=== PATIENT | female | born 1945 | race Two or more races ===

== ENCOUNTER 2025-02-28 23:56 | Inpatient (IN) | payer MEDICARE, OTHER ==
[~2025-02-28] VITALS: Ht 149.9 cm; Wt 82.0 kg
--- NOTE | 2025-03-01 00:20 | ED.PDOC ---
History of Present Illness HPI Comments HPI:79-year-old female brought in by ambulance from home. Family called 911 because patient had low blood sugar in the 30s. She received D10 in route in his blood sugar has improved. Patient is back to her baseline. There was no loss of consciousness or fall or injury or trauma. Patient had similar episodes in the past. Per EMS, initial GCS of 5 with a blood sugar of 38 on scene Initial Vitals BP: 124/70 HR: 94 RR: 16 O2: 98% Temp: 98.2 F Blood sugar on scene: 38 Past Medical History: Hypertension, diabetes Past Surgical History: None Social History: Denies ETOH, smoking, and drug use. Medications: Metformin Allergies: None Suhail HPI: Poor Historian. 79-year-old female brought in by ambulance from home. Family called 911 because patient had low blood sugar in the 30s. She received D10 in route in his blood sugar has improved. Patient is back to her baseline. There was no loss of consciousness or fall or injury or trauma. Patient had similar episodes in the past. REVIEW OF SYSTEMS: CONSTITUTIONAL: Denies acute: fever, diaphoresis, chills, generalized weakness. HEAD: Denies acute: headache, photophobia Eyes: Denies acute: Double vision, vision loss, eye pain, eye discharge. EARS: Denies acute: tinnitus, hearing loss, ear discharge, ear pain, THROAT: Denies acute: sore throat, swelling, difficulty swallowing , pain with swallowing, change in voice. NECK: Denies acute: neck pain, neck swelling, stiff neck. HEART: Denies acute : chest pain, palpitations, LUNGS: Denies acute: SOB, wheezing, cough, hemoptysis ABDOMEN: Denies acute: abdominal pain, Nausea, Vomiting, diarrhea, melena , hematemesis, hematochezia SKIN: Denies acute: rash, redness, lesions, itchiness. EXTREMITIES: Denies acute: calf pain, numbness, tingling, weakness, denies pain in extremity. Denies acute: Low back pain. Neuro: Denies acute: focal neurological deficit, motor or sensory focal neurological deficit, tremors, seizure like activity, confusion, dizziness, change in mental status, loss of bowel or bladder function, cauda equina like symptoms. : Denies acute: dysuria, hematuria, flank pain, increase in urinary frequency. PSYCH: Denies acute: hallucination, suicidal ideation, homicidal ideation. FEMALE: Denies acute: abnormal vaginal bleeding, foul odor, unusual discharge. PHYSICAL EXAM: General: ---no-----acute distress, awake and alert. Head: normocephalic, atraumatic. Neck: supple, trachea is midline, no swelling. Throat: Normal phonation. Eyes:, no erythema, no purulent discharge, no proptosis, no icterus. Heart: regular rate, regular rhythm, no significant murmur appreciated. Lungs: no apparent respiratory distress, Able to speak in full sentences. No wheezing, no rhonchi, no crackles. No stridors Clear to auscultation bilaterally. Abdomen: non tender to palpation, non distended, soft, no guarding, no rebound, + bowel sounds. Neuro: Awake, Alert, oriented to name, self, situation, follows commands GCS=15. Speech is normal. Skin: no petechia, no purpura, no cyanosis, non-pale, not jaundice. Lower extremities: --no - Pitting edema no deformity, no focal swelling, no calf TTP. Makes eye contact. moves all four extremities. Face: no apparent facial droop. ED COURSE: DISCLAIMER: This medical document was created using an electronic medical record system with voice recognition software and computerized dictation system. Although this document has been carefully reviewed, there might still be some phonetic and typographical errors. Occasional wrong-word or "sound-alike" substitutions may have occurred due to the inherent limitations of voice recognition software. These areas are purely typographical due to imperfections of the software programs and do not reflect any compromise in the patient's medical care. Please read the chart carefully and recognize, using context, where these substitutions have occurred. 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 Was a procedure done?: No Differential Dx Considerations may include: Anemia, electrolyte imbalance, hypoglycemia, UTI Includes but not limited to thyroid disease, encephalopathy, electrolyte abnormality, sepsis, infection, intracranial pathology, drug adverse effects, arrhythmia, kidney insufficiency, ACS, CVA, malignancy, anemia X-Ray, Labs, Meds, VS Vital Signs Date Time Temp Pulse Resp B/P (MAP) Pulse Ox O2 Delivery O2 Flow Rate FiO2 03/01/25 05:30 86 14 107/51 (69) 98 03/01/25 03:52 Room Air* 0 21 03/01/25 03:33 98.4 86 15 126/57 (80) 97 98.4 02/28/25 23:56 98.2 94 16 124/92 98 98.2 Lab Test 03/01/25 05:49 03/01/25 05:35 03/01/25 03:57 03/01/25 03:31 Range/Units POC Glucose 35 *L 35 *L 106 70-106 mg/dl Troponin I High Sensitivity 49 *H </=34 ng/L Test 03/01/25 02:24 03/01/25 01:26 03/01/25 00:34 Range/Units Urine Color Colorless Yellow Urine Clarity Clear Clear Urine pH 7.0 5.0-9.0 Urine Specific [place] 1.006 1.001-1.035 Urine Protein 1+ H Negative Urine Ketones Negative Negative Urine Blood 1+ H Negative /uL Urine Nitrite Negative Negative Urine Bilirubin Negative Negative Urine Urobilinogen Normal Negative mg/dL Urine Leukocyte Esterase Negative Negative /uL Urine RBC <1 0 - 4 /hpf Urine Microscopic WBC 6 H 0-5 /HPF Urine Squamous Epithelial Cells Few <5 /hpf Urine Bacteria Few H None Seen /hpf Urine Glucose 1+ H Normal mg/dL Troponin I High Sensitivity 47 *H 32 </=34 ng/L White Blood Count 13.5 H 4.4-10.8 10^3/uL Red Blood Count 3.65 L 4.0-5.20 10^6/uL Hemoglobin 8.9 L 12.2-16.2 g/dL Hematocrit 26.0 L 36.0-46.0 % Mean Corpuscular Volume 71.4 L 80.0-100.0 fL Mean Corpuscular Hemoglobin 24.5 L 28.0-32.0 pg Mean Corpuscular Hemoglobin Concent 34.3 32.0-36.0 g/dL Red Cell Distribution Width 14.3 11.8-14.3 % Platelet Count 493 H 140-450 10^3/uL Mean Platelet Volume 6.2 L 6.9-10.8 fL Neutrophils (%) (Auto) 87.3 H 37.0-80.0 % Lymphocytes (%) (Auto) 4.8 L 10.0-50.0 % Monocytes (%) (Auto) 7.5 0.0-12.0 % Eosinophils (%) (Auto) 0.2 0.0-7.0 % Basophils (%) (Auto) 0.2 0.0-2.0 % Neutrophils # (Auto) 11.8 H 1.6-8.6 10 ^3/uL Lymphocytes # (Auto) 0.7 0.4-5.4 10 ^3/uL Monocytes # (Auto) 1.0 0-1.3 10 ^3/uL Eosinophils # (Auto) 0 0-0.8 10 ^3/uL Basophils # (Auto) 0 0-0.2 10 ^3/uL Nucleated Red Blood Cells 0.0 % Sodium Level 119 *L 136-145 mmol/L Potassium Level 4.3 3.5-5.1 mmol/L Chloride Level 89 L 98-107 mmol/L Carbon Dioxide Level 21 20-31 mmol/L Anion Gap 9 5-15 Blood Urea Nitrogen 27 H 9-23 mg/dL Creatinine 2.65 H 0.550-1.02 mg/dL Glomerular Filtration Rate Calc 18 >90 mL/min BUN/Creatinine Ratio 10.2 10.0-20.0 Serum Glucose 84 74-106 mg/dL Lactic Acid Level 1.7 0.4-2.0 mmol/L Calcium Level 8.4 L 8.7-10.4 mg/dL Total Bilirubin 0.3 0.2-1.0 mg/dL Aspartate Amino Transferase (AST) 26 13-40 U/L Alanine Aminotransferase (ALT) 14 7-40 U/L Alkaline Phosphatase 94 46-116 U/L Total Protein 7.5 5.7-8.2 g/dL Albumin 4.0 3.2-4.8 g/dL Current Medications Medications (Trade) Dose Ordered Sig/Libby Route Start Time Stop Time Status Last Admin Sodium Chloride 1,000 ml @ 1,000 mls/hr Q1H ONCE IV 03/01/25 01:45 03/01/25 02:44 DC 03/01/25 03:36 Dextrose 50 ml ONCE ONCE IV 03/01/25 02:45 03/01/25 02:46 DC 03/01/25 02:45 [place] [id number] Ph: [phone] DIAGNOSTIC IMAGING Diagnostic Imaging Report : [id number] Signed PATIENT: STEVE MANNING ACCT: [id number] UNIT: [id number] : 1945 LOC: ER ROOM / BED: / AGE / SEX: 79 / F ADM STATUS: REG ER SERVICE 2 ORDERING PHYSICIAN: LAISHA HODGE DO PROCEDURE(s): CXRP - CHEST PORTABLE REASON: weak ORDER NUMBER(s): [id number], ACCESSION NUMBER(s): [id number] CHEST RADIOGRAPH Indication: weak Technique: Single frontal view of the chest was obtained COMPARISON: None FINDINGS: Lines and Tubes: None Lungs: Clear Pleura: No effusion. No pneumothorax. Cardiomediastinal contours: Unremarkable Bones: Unremarkable IMPRESSION: 1. No acute disease. ATED BY: HOSEA ANDERSON MD DICTATED DATE/TIME: 03/01/25318 SIGNED BY: HOSEA ANDERSON MD SIGNED DATE/TIME: 03/01/25318 CC: Time of 1ST Reevaluation: 00:13 Reevaluation 1ST: Unchanged Patient Education/Counseling: Diagnosis, Treatment Family Education/Counseling: No Family Present Comments MDM: patient presented with the above HPI.--hypoglycemic episode----workup was initiated. patient was found with the above mentioned diagnosis. the following medications were ordered: please refer to order lists of meds and tests obtained by myself Dr. Hodge. Patient ED course and VS have been stabilized. Patient has been reassessed in the ED and remained in a stable condition. Pertinent incidental findings were discussed with the patient and/or family. Patient/family voices understanding and is agreeable with plan. Patient has been observed in the ED adequate length of time to insure improvement/stability. Escalation of care considered: Consideration of escalation to observation or admission Patient was found with a UTI, antibiotics initiated. Patient was found with hyponatremia, fluids was initiated. Patient had another episode of hypoglycemia here in the ED, dextrose D50 was given. Patient was ADMITTED to the medicine team for further evaluation and treatment of their presentation. All the reports of any imaging studies that were ordered by myself were reviewed by myself. SEPSIS Sepsis Screen Physician Orders Termite Control Servicer (02/28/25 ) Electrocardigram (02/28/25 23:58) Chest Portable (03/01/25 01:43) Ceftriaxone 1gm/50ml (Rocephin) (03/01/25 05:45) Vital Signs Date Time Temp Pulse Resp B/P (MAP) Pulse Ox O2 Delivery O2 Flow Rate FiO2 03/01/25 05:30 86 14 107/51 (69) 98 03/01/25 03:52 Room Air* 0 21 03/01/25 03:33 98.4 86 15 126/57 (80) 97 98.4 02/28/25 23:56 98.2 94 16 124/92 98 98.2 Laboratory Tests Test 03/01/25 00:34 Lactic Acid Level 1.7 mmol/L (0.4-2.0) White Blood Count 13.5 10^3/uL (4.4-10.8) H Medications Medications Dose Ordered Sig/Libby Route Start Time Stop Time Status Last Admin Dose Admin Dextrose 50 ml ONCE ONCE IV 03/01/25 02:45 03/01/25 02:46 DC 03/01/25 02:45 Sodium Chloride 1,000 ml @ 1,000 mls/hr Q1H ONCE IV 03/01/25 01:45 03/01/25 02:44 DC 03/01/25 03:36 Departure 1 Departure Time of Disposition: 00:50 Impression: Primary Impression: Hypoglycemic episode in patient with diabetes mellitus Additional Impressions: Hyponatremia Acute renal insufficiency Anemia UTI (urinary tract infection) Disposition: ADMITTED INPATIENT Admit to: Tele Condition: Guarded Discharged With: Self Critical Care Note Critical Care Time?: Yes (55 min-critical care time only) Critical care comment: Hypoglycemia Stability Stability form required: No I personally scribed for LAISHA HODGE DO ([facility]) on 03/01/25 at 00:20. Electronically submitted by Junior Wahl ([facility]). I personally scribed for LAISHA HODGE DO ([facility]) on 03/01/25 at 00:42. Electronically submitted by Junior Wahl ([facility]). I personally scribed for LAISHA HODGE DO ([facility]) on 03/01/25 at 01:45. Electronically submitted by Junior Wahl ([facility]). I personally scribed for LAISHA HODGE DO ([facility]) on 03/01/25 at 05:21. Electronically submitted by Junior Wahl ([facility]). LAISHA HODGE DO Mar 01, 2025 00:20
[2025-03-01 00:43] LABS: Nucleated Red Blood Cells % 0.0 %
[2025-03-01 00:45] LABS: Hematocrit 26.0 % (36.0-46.0); Hemoglobin 8.9 g/dL (12.2-16.2); Mean Corpuscular Hemoglobin 24.5 pg (28.0-32.0); Mean Corpuscular Volume 71.4 fL (80.0-100.0)
[2025-03-01 01:03] LABS: Alanine Aminotransferase 14 U/L (7-40); Albumin 4.0 g/dL (3.2-4.8); Alkaline Phosphatase 94 U/L (46-116); Anion Gap 9 (5-15); BUN/Creatinine Ratio 10.2 (10.0-20.0); Carbon Dioxide 21 mmol/L (20-31); Glucose 84 mg/dL (74-106); Potassium 4.3 mmol/L (3.5-5.1); Total Protein 7.5 g/dL (5.7-8.2)
[2025-03-01 01:21] LABS: Blood Urea Nitrogen 27 mg/dL (9-23); Chloride 89 mmol/L (98-107)
[2025-03-01 01:22] LABS: Bilirubin, Total 0.3 mg/dL (0.2-1.0); Calcium 8.4 mg/dL (8.7-10.4)
[2025-03-01 01:23] LABS: Sodium 119 mmol/L (136-145)
[2025-03-01] MEDS: DEXTROSE 50% SYRINGE 50 ML IV ONE (02:44)
[2025-03-01] MEDS: DEXTROSE (50%) 50ML SYRG IV ONE (02:45)
[2025-03-01 03:11] LABS: Urine Protein, UAD 1+ (Negative)
--- NOTE | 2025-03-01 03:22 | DVH ---
CHEST RADIOGRAPH Indication: weak Technique: Single frontal view of the chest was obtained COMPARISON: None FINDINGS: Lines and Tubes: None Lungs: Clear Pleura: No effusion. No pneumothorax. Cardiomediastinal contours: Unremarkable Bones: Unremarkable IMPRESSION: 1. No acute disease.
[2025-03-01] MEDS: SODIUM CHLORIDE 0.9% 1,000 ML IV ONE (03:36)
--- NOTE | 2025-03-01 06:50 | DVHHP2 ---
History of Present Illness Reason for Visit: Low blood glucose History of Present Illness 79-year-old female past medical history hypertension diabetes denies any surgical history chief complaint patient was brought in by ambulance with his her family they called 911 due her blood glucose being low it was found to be 39 she received an amp of dextrose IV which improved her sugars she came up to 212 by the labs patient unable to give much information about herself on my exam she is from [facility] as she is [place]og[place] speaking. Information provided from the nurse. When evaluating patient's labs and imaging from ED ceftriaxone dexamethasone was given normal saline white count was 13.5 hemoglobin was 8.9 26.0 glucose was 35 and currently 212 troponin was elevated x2 UA showed bacteria chest x-ray was unremarkable. With these findings we will admit patient for further workup and care Past Medical History See HPI above Past Surgical History See HPI above Family History Reviewed, non-contributory to the management of this case. Past Social History The patient lives at home, denies smoking, alcohol or illicit drugs abuse. Review of Systems Constitutional: No: Fever, Chills, Sweats, Weakness, Malaise, Other Eyes: No: Pain, Vision change, Conjunctivae inflammation, Eyelid inflammation, Other, Redness ENT: No: Ear pain, Ear discharge, Nose pain, Nose discharge, Nose congestion, Mouth pain, Mouth swelling, Throat pain, Throat swelling, Other Respiratory: No: Cough, Dry, Shortness of breath, SOB with excertion, Wheezing, Hemoptysis, Pleuritic Pain, Sputum, Wheezing, Other Cardiovascular: No: Chest Pain, Palpitations, Orthopnea, Paroxysmal Noc. Dyspnea, Edema, Lt Headedness, Other Gastrointestinal: No: Nausea, Vomiting, Abdominal Pain, Diarrhea, Constipation, Melena, Hematochezia, Other Genitourinary: No Dysuria, No Frequency, No Incontinence, No Hematuria, No Retention, No Other Musculoskeletal: No: other, neck pain, shoulder pain, arm pain, back pain, hand pain, leg pain, foot pain Skin: No: Rash, Lesions, Jaundice, Bruising, Other Neurological: No: Weakness, Numbness, Incoordination, Change in speech, Confusion, Seizures, Other Allergies: Coded Allergies: NO KNOWN ALLERGIES (Unverified , 03/01/25) Exam Vital Signs Vital Signs Date Time Temp Pulse Resp B/P (MAP) Pulse Ox O2 Delivery O2 Flow Rate FiO2 9/12/25 05:30 86 14 107/51 (69) 98 03/01/25 03:52 Room Air* 0 21 03/01/25 03:33 98.4 98.4 General Appearance: Alert, Oriented X3, Cooperative, No acute distress HEENT: Atraumatic, PERRLA, EOMI, Mucous membr. moist/pink Respiratory: Clear to auscultation, Normal air movement Cardiovascular: Regular rate, Normal S1, Normal S2, No murmurs Abdominal: Normal bowel sounds, Soft, No tenderness, No hepatospenomegaly, No masses Extremities: No clubbing, No cyanosis, No edema, Normal pulses, No tenderness /swelling Skin: No rashes, No breakdown, No significant lesion Neuro: Other (Neuro nonfocal) Psych/Mental Status: Mental status NL, Mood NL Labs/Xrays Chest x-ray unremarkable I reviewed labs, imaging CT scan abdomen pelvis, EKG and all diagnostic studies on this patient from ED records and the medical chart Labs Test 03/01/25 06:12 03/01/25 03:57 03/01/25 02:24 03/01/25 00:34 Range/Units POC Glucose 212 H 70-106 mg/dl Troponin I High Sensitivity 49 *H </=34 ng/L Urine Color Colorless Yellow Urine Clarity Clear Clear Urine pH 7.0 5.0-9.0 Urine Specific [place] 1.006 1.001-1.035 Urine Protein 1+ H Negative Urine Ketones Negative Negative Urine Blood 1+ H Negative /uL Urine Nitrite Negative Negative Urine Bilirubin Negative Negative Urine Urobilinogen Normal Negative mg/dL Urine Leukocyte Esterase Negative Negative /uL Urine RBC <1 0 - 4 /hpf Urine Microscopic WBC 6 H 0-5 /HPF Urine Squamous Epithelial Cells Few <5 /hpf Urine Bacteria Few H None Seen /hpf Urine Glucose 1+ H Normal mg/dL White Blood Count 13.5 H 4.4-10.8 10^3/uL Red Blood Count 3.65 L 4.0-5.20 10^6/uL Hemoglobin 8.9 L 12.2-16.2 g/dL Hematocrit 26.0 L 36.0-46.0 % Mean Corpuscular Volume 71.4 L 80.0-100.0 fL Mean Corpuscular Hemoglobin 24.5 L 28.0-32.0 pg Mean Corpuscular Hemoglobin Concent 34.3 32.0-36.0 g/dL Red Cell Distribution Width 14.3 11.8-14.3 % Platelet Count 493 H 140-450 10^3/uL Mean Platelet Volume 6.2 L 6.9-10.8 fL Neutrophils (%) (Auto) 87.3 H 37.0-80.0 % Lymphocytes (%) (Auto) 4.8 L 10.0-50.0 % Monocytes (%) (Auto) 7.5 0.0-12.0 % Eosinophils (%) (Auto) 0.2 0.0-7.0 % Basophils (%) (Auto) 0.2 0.0-2.0 % Neutrophils # (Auto) 11.8 H 1.6-8.6 10 ^3/uL Lymphocytes # (Auto) 0.7 0.4-5.4 10 ^3/uL Monocytes # (Auto) 1.0 0-1.3 10 ^3/uL Eosinophils # (Auto) 0 0-0.8 10 ^3/uL Basophils # (Auto) 0 0-0.2 10 ^3/uL Nucleated Red Blood Cells 0.0 % Sodium Level 119 *L 136-145 mmol/L Potassium Level 4.3 3.5-5.1 mmol/L Chloride Level 89 L 98-107 mmol/L Carbon Dioxide Level 21 20-31 mmol/L Anion Gap 9 5-15 Blood Urea Nitrogen 27 H 9-23 mg/dL Creatinine 2.65 H 0.550-1.02 mg/dL Glomerular Filtration Rate Calc 18 >90 mL/min BUN/Creatinine Ratio 10.2 10.0-20.0 Serum Glucose 84 74-106 mg/dL Lactic Acid Level 1.7 0.4-2.0 mmol/L Calcium Level 8.4 L 8.7-10.4 mg/dL Total Bilirubin 0.3 0.2-1.0 mg/dL Aspartate Amino Transferase (AST) 26 13-40 U/L Alanine Aminotransferase (ALT) 14 7-40 U/L Alkaline Phosphatase 94 46-116 U/L Total Protein 7.5 5.7-8.2 g/dL Albumin 4.0 3.2-4.8 g/dL SEPSIS Sepsis Screen Date sepsis recognized/suspect: Mar 01, 2025 Time Sepsis recognized/suspect: 353 Recent Procedure: No On Antibiotic Therapy: No Respiratory Rate >20: No Heart Rate >90: No Temp<36 C (96.8 F) or >38.3 C: No SBP <90 or MAP <65 mmHG: No New Acute Mental Status Change: No Is the patient on CPAP, BIPAP,: No Physician Orders Precision Assembler (02/28/25 ) Electrocardigram (02/28/25 23:58) Chest Portable (03/01/25 01:43) Vital Signs Date Time Temp Pulse Resp B/P (MAP) Pulse Ox O2 Delivery O2 Flow Rate FiO2 03/01/25 05:30 86 14 107/51 (69) 98 03/01/25 03:52 Room Air* 0 21 03/01/25 03:33 98.4 86 15 126/57 (80) 97 98.4 02/28/25 23:56 98.2 94 16 124/92 98 98.2 Laboratory Tests Test 03/01/25 00:34 Lactic Acid Level 1.7 mmol/L (0.4-2.0) White Blood Count 13.5 10^3/uL (4.4-10.8) H Medications Medications Dose Ordered Sig/Libby Route Start Time Stop Time Status Last Admin Dose Admin Ceftriaxone Sodium 50 ml @ 100 mls/hr ONCE ONCE IV 03/01/25 05:45 03/01/25 06:14 DC 03/01/25 06:07 100 MLS/HR Dextrose 50 ml ONCE ONCE IV 03/01/25 02:45 03/01/25 02:46 DC 03/01/25 02:45 50 ML Sodium Chloride 1,000 ml @ 1,000 mls/hr Q1H ONCE IV 03/01/25 01:45 03/01/25 02:44 DC 03/01/25 03:36 1,000 MLS/HR Assessment/Plan Assessment/Plan acute metabolic encephalopathy from hypoglycemia glucose found to be 35 ordered accucheck q4h for now ordered diet hold home dose of insulin or oral medication acute hypoglycemia trend glucose to keep >120 diet accucheck more freqent rounding team to ordered hemoglin a1c consider d10w if continued hypoglycemia acute leukocytosis likely from cystitis ordered ceftriaxone for now ordered urine culture fu results cxr negative acute cystitis ordered ceftriaxone ordered urine culture fu results acute on chronic anemia monitor transfuse if hh <8.0 rounding team to order iron panel ordered occult stool in blood acute elevation in trop likely demand ischemia ekg no stemi trend trops ordered echo fu results chronic problems HTN fen/ppx diet hl scd lovenox plan admit to tele Plan discussed with: Other (nursing ) Date of Service: Mar 01, 2025 Billing Provider: HENNA HAYWARD DNP Common Visit Codes: [id number] INP/OBS CARE (HIGH) HENNA HAYWARD DNP Mar 01, 2025 06:50
[2025-03-01] MEDS ORDERED: ONDANSETRON HCL 4 MG/2 ML VIAL IV PRN (07:00)
[2025-03-01] MEDS ORDERED: DOCUSATE SOD 100 MG CAP PO PRN (07:00)
[2025-03-01] MEDS ORDERED: DEXTROSE (50%) 50ML SYRG IV PRN (07:00)
[2025-03-01] MEDS ORDERED: MORPHINE SULFATE INJ 2 MG/ml SYRG IV PRN (07:00)
[2025-03-01 07:20] VITALS: PULSE 86; RESP 15; O2SAT 94
[2025-03-01] MEDS: ACCU-CHEK COMFORT CURVE STRIP VI SCH ×2 (08:13→21:30)
[2025-03-01] MEDS ORDERED: NITROGLYCERIN 0.4 MG SL TAB SL PRN (09:45)
[2025-03-01] MEDS: ENOXAPARIN SOD 30 MG/0.3 ML SYRINGE SC SCH (10:28)
[2025-03-01 11:16] VITALS: BP_SYST 121; BP_SYST 123; BP_DIAS 62; BP_DIAS 80; PULSE 96; PULSE 97; RESP 18; TEMP 97; TEMP 97.8; O2SAT 96; O2SAT 97
[2025-03-01] MEDS ORDERED: DEXTROSE 10% 250 ML IV SCH (14:45)
[2025-03-01] MEDS: DEXTROSE 10% 1,000 ML IV SCH (15:26)
[2025-03-01 16:45] VITALS: BP 138/69; PULSE 88; RESP 18; TEMP 97.8; O2SAT 96
--- NOTE | 2025-03-01 17:26 | DVHINCON2 ---
Date Seen: Mar 01, 2025 Referring Physician ROYCE العراقي Reason for Consultation Elevated troponin History of Present Illness This is a [place] speaking 79-year-old female patient who presents to the emergency room with chief complaint of generalized weakness. The patient is [place] speaking and a certified home health aide was used to communicate (ID [id number]). The patient reports feeling generalized weakness for which she checked her blood sugar at home and noticed that her blood sugar readings were in the 30s. The patient was brought to the emergency room for further evaluation. Cardiology has been consulted at this time for elevated troponin level. No twelve lead electrocardiogram was found in the patient's hard chart or on cardio server systems administrator. A twelve lead electrocardiogram was ordered and obtained at time of assessment by bedside RN and reveals sinus tachycardia with artifact in septal and lateral leads (V1, V6). Initial troponin level of 32ng/L with slight up trend and peak level at 81ng/L. Significant past medical history includes hypertension, dy slipidemia, and type 2 diabetes mellitus. Of note, the patient is a very poor historian. Past Medical History Past medical history reviewed. No other significant than mentioned above. Past Surgical History Denies any previous surgery Family History Family history reviewed. Social History Denies the use of tobacco, alcohol or illicit drugs. Allergies: Coded Allergies: NO KNOWN ALLERGIES (Unverified , 03/01/25) Home Meds Home medications reviewed. Current Medications Current Medications Medications (Trade) Dose Ordered Sig/Libby Route PRN Reason Start Time Stop Time Status Last Admin Ceftriaxone Sodium 50 ml @ 100 mls/hr DAILY@09 IV 03/02/25 09:00 Diagnostic Test (Pha) (Accu-Chek Comfort Curve T) 1 strip IQ4HR 03/01/25 08:00 03/01/25 16:28 Dextrose 50 ml UD PRN IV Blood Sugar LESS THAN 60 03/01/25 07:00 Ondansetron HCl (Zofran) 4 mg Q4HP PRN IV NAUSEA / VOMITING 03/01/25 07:00 Docusate Sodium (Colace Capsule) 100 mg BIDPRN PRN PO FOR CONSTIPATION 03/01/25 07:00 Enoxaparin Sodium (Lovenox) 30 mg DAILY SC 03/01/25 10:00 03/01/25 10:28 Morphine Sulfate 2 mg Q4HPRN PRN IV SEVERE PAIN (7-10 PAIN SCALE) 03/01/25 07:00 Nitroglycerin (Ntrostat Sublingual) 0.4 mg Q5MINP PRN SL FOR CHEST PAIN 03/01/25 09:45 Dextrose 250 ml @ 50 mls/hr DAILY IV 03/01/25 14:45 UNV Dextrose 1,000 ml @ 50 mls/hr Q20H IV 03/01/25 15:15 03/01/25 15:26 Review of Systems Constitutional: Generalized weakness Ears, Nose, & Throat: No symptom reported Eyes: No symptom reported Neurological: No symptoms reported Pulmonary/Respiratory: No symptoms reported Cardiovascular: No symptom reported Gastrointestinal: No symptom reported Genitourinary: No symptom reported Musculoskeletal: No symptom reported Skin: No symptom reported Psychiatric: No symptom reported Endocrine: No symptom reported Hematologic/Lymphatic: No symptom reported Vital Signs Vital Signs Date Time Temp Pulse Resp B/P (MAP) Pulse Ox O2 Delivery O2 Flow Rate FiO2 03/01/25 16:45 97.8 88 18 138/69 (92) 96 97.8 03/01/25 11:16 Room Air* 0 21 Physical Exam General Appearance: Cooperative. Thin Pulmonary/Respiratory: Clear, bilateral breaths sounds. Cardiovascular/Chest: Regular rate and rhythm. Peripheral Pulses: 2+ Radial (R). 2+ Radial (L). 2+ Pedal (R). 2+ Pedal (L) Abdominal Exam: Normal bowel sounds. Ankle Exam: Negative ankle edema Lower extremities: Negative lower extremity edema Neuro/Mental Status: A/OX4, coherent. Thoughts/Psych: Normal thought pattern. Appropriate mood and affect. Good judgment and insight. Appearance: No acute distress. Skin Exam: Normal inspection. Normal color. Warm and dry. Labs/Diagnostic Data Labs Test 03/01/25 16:26 03/01/25 07:08 03/01/25 02:24 03/01/25 00:34 Range/Units POC Glucose 113 H 70-106 mg/dl Troponin I High Sensitivity 81 *H </=34 ng/L Urine Color Colorless Yellow Urine Clarity Clear Clear Urine pH 7.0 5.0-9.0 Urine Specific [place] 1.006 1.001-1.035 Urine Protein 1+ H Negative Urine Ketones Negative Negative Urine Blood 1+ H Negative /uL Urine Nitrite Negative Negative Urine Bilirubin Negative Negative Urine Urobilinogen Normal Negative mg/dL Urine Leukocyte Esterase Negative Negative /uL Urine RBC <1 0 - 4 /hpf Urine Microscopic WBC 6 H 0-5 /HPF Urine Squamous Epithelial Cells Few <5 /hpf Urine Bacteria Few H None Seen /hpf Urine Glucose 1+ H Normal mg/dL White Blood Count 13.5 H 4.4-10.8 10^3/uL Red Blood Count 3.65 L 4.0-5.20 10^6/uL Hemoglobin 8.9 L 12.2-16.2 g/dL Hematocrit 26.0 L 36.0-46.0 % Mean Corpuscular Volume 71.4 L 80.0-100.0 fL Mean Corpuscular Hemoglobin 24.5 L 28.0-32.0 pg Mean Corpuscular Hemoglobin Concent 34.3 32.0-36.0 g/dL Red Cell Distribution Width 14.3 11.8-14.3 % Platelet Count 493 H 140-450 10^3/uL Mean Platelet Volume 6.2 L 6.9-10.8 fL Neutrophils (%) (Auto) 87.3 H 37.0-80.0 % Lymphocytes (%) (Auto) 4.8 L 10.0-50.0 % Monocytes (%) (Auto) 7.5 0.0-12.0 % Eosinophils (%) (Auto) 0.2 0.0-7.0 % Basophils (%) (Auto) 0.2 0.0-2.0 % Neutrophils # (Auto) 11.8 H 1.6-8.6 10 ^3/uL Lymphocytes # (Auto) 0.7 0.4-5.4 10 ^3/uL Monocytes # (Auto) 1.0 0-1.3 10 ^3/uL Eosinophils # (Auto) 0 0-0.8 10 ^3/uL Basophils # (Auto) 0 0-0.2 10 ^3/uL Nucleated Red Blood Cells 0.0 % Sodium Level 119 *L 136-145 mmol/L Potassium Level 4.3 3.5-5.1 mmol/L Chloride Level 89 L 98-107 mmol/L Carbon Dioxide Level 21 20-31 mmol/L Anion Gap 9 5-15 Blood Urea Nitrogen 27 H 9-23 mg/dL Creatinine 2.65 H 0.550-1.02 mg/dL Glomerular Filtration Rate Calc 18 >90 mL/min BUN/Creatinine Ratio 10.2 10.0-20.0 Serum Glucose 84 74-106 mg/dL Lactic Acid Level 1.7 0.4-2.0 mmol/L Calcium Level 8.4 L 8.7-10.4 mg/dL Total Bilirubin 0.3 0.2-1.0 mg/dL Aspartate Amino Transferase (AST) 26 13-40 U/L Alanine Aminotransferase (ALT) 14 7-40 U/L Alkaline Phosphatase 94 46-116 U/L Total Protein 7.5 5.7-8.2 g/dL Albumin 4.0 3.2-4.8 g/dL Assessment NSTEMI, likely type 2 in the setting of electrolyte derangement Rule out structural heart disease Severe hyponatremia Hypoglycemia Anemia Acute kidney injury Plan/Recommendation We will continue with the following plan/recommendations (Dr. Kowalski): We will proceed with obtaining a transthoracic echocardiogram to evaluate cardiac function. Elevated troponin level minimal and likely type 2 in the setting of an electrolyte derangement. The patient noted to have severe hyponatremia as well as hypoglycemia and elevated creatinine levels. The patient denies any cardiac symptoms. Continue with close cardiac surveillance. In the setting of an unremarkable transthoracic echocardiogram, there is no further inpatient cardiac workup indicated at this time. Rest of care per primary care team. Thank you for allowing us to care for this patient. Please call with any questions or concerns. Critical care time spent: 44 minutes This medical document was created using an electronic medical record system with voice recognition software and computerized dictation system. Although this document has been carefully reviewed, there might still be some phonetic and typographical errors. Occasional wrong-word or ``sound-alike substitutions may have occurred due to the inherent limitations of voice recognition software. These areas are purely typographical due to imperfections of the software programs and do not reflect any compromise in the patient's medical care. Please read the chart carefully and recognize, using context, where these substitutions have occurred. Plan discussed with: Patient NYHA Physical activity limitations: NA Date of Service: Mar 01, 2025 Billing Provider: NEISHA GILES Cardiology Common Codes: [id number] INP/OBS CARE (High) Cardiology Consultation Codes: [id number] CONSULT <45MIN NEISHA GILES Mar 01, 2025 17:26
[2025-03-01 20:00] VITALS: PULSE 104; PULSE 94
[2025-03-01 21:00] VITALS: BP 134/77; PULSE 102; RESP 18; TEMP 98.5; O2SAT 99
[2025-03-02] VITALS (8 sets, daily range): BP systolic 127–157; BP diastolic 59–74; PULSE 81–108; RESP 17–18; TEMP 97.2–98.4; O2SAT 94–99
[2025-03-02 05:41] LABS: Hemoglobin 9.5 g/dL (12.2-16.2)
[2025-03-02 05:46] LABS: Hematocrit 28.1 % (36.0-46.0); Mean Corpuscular Hemoglobin 24.0 pg (28.0-32.0); Mean Corpuscular Volume 71.1 fL (80.0-100.0); Nucleated Red Blood Cells % 0.1 %
[2025-03-02 05:54] LABS: Alanine Aminotransferase 15 U/L (7-40); Albumin 4.1 g/dL (3.2-4.8); Alkaline Phosphatase 93 U/L (46-116); Anion Gap 10 (5-15); BUN/Creatinine Ratio 8.5 (10.0-20.0); Blood Urea Nitrogen 20 mg/dL (9-23); Calcium 9.0 mg/dL (8.7-10.4); Carbon Dioxide 22 mmol/L (20-31); Glucose 102 mg/dL (74-106); Magnesium 1.8 mg/dL (1.6-2.6); Potassium 4.4 mmol/L (3.5-5.1); Total Protein 7.6 g/dL (5.7-8.2); Triglycerides 84 mg/dL (< 150)
[2025-03-02 05:55] LABS: Chloride 94 mmol/L (98-107); Cholesterol 76 mg/dL (< 200); HDL Cholesterol 41 mg/dL (40-59); Sodium 126 mmol/L (136-145)
[2025-03-02 05:57] LABS: Bilirubin, Total 0.3 mg/dL (0.2-1.0)
--- NOTE | 2025-03-02 12:14 | DVHPN2 ---
Reviewed: Care Plan, H&P, Labs, Medications, Previous Orders, Radiology Changes from previous H/P or p: No Changes Eyes: No Pain, No Vision change, No Conjunctivae inflammation, No Eyelid inflammation, No Other, No Redness ENT: No Ear pain, No Ear discharge, No Nose pain, No Nose discharge, No Nose congestion, No Mouth pain, No Mouth swelling, No Throat pain, No Throat swelling, No Other Cardiovascular: No Chest Pain, No Palpitations, No Orthopnea, No Paroxysmal Noc. Dyspnea, No Edema, No Lt Headedness, No Other Respiratory: No Cough, No Dry, No Shortness of breath, No SOB with excertion, No Wheezing, No Hemoptysis, No Pleuritic Pain, No Sputum, No Other Gastrointestinal: No Nausea, No Vomiting, No Abdominal Pain, No Diarrhea, No Constipation, No Melena, No Hematochezia, No Other Genitourinary: No Dysuria, No Frequency, No Incontinence, No Hematuria, No Retention, No Other Musculoskeletal: No other, No neck pain, No shoulder pain, No arm pain, No back pain, No hand pain, No leg pain, No foot pain Skin: No Rash, No Lesions, No Jaundice, No Bruising, No Other Objective Vitals Vital Signs Date Time Temp Pulse Resp B/P (MAP) Pulse Ox O2 Delivery O2 Flow Rate FiO2 03/02/25 08:48 98.0 93 18 146/73 (97) 95 98.0 03/02/25 08:00 Room Air* 0 21 Intake/Output Intake and Output 03/02/25 07:00 Intake Total 1390 ml Balance 1390 ml Intake Oral 1340 ml IV Total 50 ml # Voids 12 Medications Current Medications Medications Dose Ordered Sig/Libby Route Start Time Stop Time Status Last Admin Dose Admin Ceftriaxone Sodium 50 ml @ 100 mls/hr DAILY@09 IV 03/02/25 09:00 03/02/25 09:55 100 MLS/HR Dextrose 50 ml UD PRN IV 03/01/25 07:00 Ondansetron HCl 4 mg Q4HP PRN IV 03/01/25 07:00 Docusate Sodium 100 mg BIDPRN PRN PO 03/01/25 07:00 Enoxaparin Sodium 30 mg DAILY SC 03/01/25 10:00 03/02/25 09:56 30 MG Morphine Sulfate 2 mg Q4HPRN PRN IV 03/01/25 07:00 Nitroglycerin 0.4 mg Q5MINP PRN SL 03/01/25 09:45 Dextrose 250 ml @ 50 mls/hr DAILY IV 03/01/25 14:45 UNV Dextrose 1,000 ml @ 50 mls/hr Q20H IV 03/01/25 15:15 03/01/25 15:26 50 MLS/HR Diagnostic Test (Pha) 1 strip Q4H 03/01/25 21:30 03/02/25 09:56 1 STRIP Laboratory Results Laboratory Tests 03/02/25 04:43 Chemistry Test 03/02/25 04:43 Albumin 4.1 g/dL (3.2-4.8) Calcium Level 9.0 mg/dL (8.7-10.4) Magnesium Level 1.8 mg/dL (1.6-2.6) Total Protein 7.6 g/dL (5.7-8.2) Lipid panel Test 03/02/25 04:43 Cholesterol Level 76 mg/dL (< 200) HDL Cholesterol 41 mg/dL (40-59) Triglycerides Level 84 mg/dL (< 150) LFT Test 03/02/25 04:43 Alanine Aminotransferase (ALT) 15 U/L (7-40) Alkaline Phosphatase 93 U/L (46-116) Aspartate Amino Transferase (AST) 24 U/L (13-40) Total Bilirubin 0.3 mg/dL (0.2-1.0) HgA1c, TSH Test 03/02/25 04:43 Hemoglobin A1c 8.2 % A1C (<5.7) H Thyroid Stimulating Hormone (TSH) 4.17 uIU/mL (0.55-4.78) Urinalysis Test 03/01/25 02:24 Urine Color Colorless (Yellow) Urine Clarity Clear (Clear) Urine pH 7.0 (5.0-9.0) Urine Specific [place] 1.006 (1.001-1.035) Urine Protein 1+ (Negative) H Urine Ketones Negative (Negative) Urine Blood 1+ /uL (Negative) H Urine Nitrite Negative (Negative) Urine Bilirubin Negative (Negative) Urine Urobilinogen Normal mg/dL (Negative) Urine Leukocyte Esterase Negative /uL (Negative) Urine RBC <1 /hpf (0 - 4) Urine Microscopic WBC 6 /HPF (0-5) H Urine Squamous Epithelial Cells Few /hpf (<5) Urine Bacteria Few /hpf (None Seen) H Urine Glucose 1+ mg/dL (Normal) H Microbiology Microbiology Date/Time Source Procedure Growth Status 03/01/25 02:24 Voided Urine Urine Culture - Preliminary Resulted Labs and/or images reviewed: Labs reviewed by me, Image(s) reviewed by me Assessment/Plan Assessment/Plan Sepsis with hypoglycemia hyponatremia altered mental status sepsis secondary to urinary tract infection NSTEMI, likely type 2 in the setting of electrolyte derangement, cardiology consult by Dr. Kowalski appreciated Rule out structural heart disease echocardiogram result pending Severe hyponatremia Hypoglycemia Anemia Acute kidney injury UTI: Rocephin urine cultures Time Spent 70 minutes Advanced care planning time 20 minutes Flu Test pending COVID test pending Patient is full code Plan discussed with: Patient Date of Service: Mar 02, 2025 Billing Provider: BRITTANY MCINTYRE MD Common Visit Codes: [id number] CARE 30-74 MIN BRITTANY MCINTYRE MD Mar 02, 2025 12:14
[2025-03-02] MEDS: SODIUM CHLORIDE 0.9% 1,000 ML IV SCH (13:49)
[2025-03-02] MEDS: InsuLIN REG 1unit/0.01ml Soln (100units/ml) SC ONE (13:50)
[2025-03-02 14:38] LABS: COVID19 ANTIGEN SOFIA FIA NEGATIVE (NEGATIVE)
[2025-03-03] VITALS (7 sets, daily range): BP systolic 128–144; BP diastolic 67–77; PULSE 88–104; RESP 14–18; TEMP 98.4–99; O2SAT 91–99
[2025-03-03] MEDS: ACCU-CHEK COMFORT CURVE STRIP VI SCH (13:00)
--- NOTE | 2025-03-03 13:03 | DVHPN2 ---
Reviewed: Care Plan, H&P, Labs, Medications, Previous Orders, Radiology Changes from previous H/P or p: No Changes Eyes: No Pain, No Vision change, No Conjunctivae inflammation, No Eyelid inflammation, No Other, No Redness ENT: No Ear pain, No Ear discharge, No Nose pain, No Nose discharge, No Nose congestion, No Mouth pain, No Mouth swelling, No Throat pain, No Throat swelling, No Other Cardiovascular: No Chest Pain, No Palpitations, No Orthopnea, No Paroxysmal Noc. Dyspnea, No Edema, No Lt Headedness, No Other Respiratory: No Cough, No Dry, No Shortness of breath, No SOB with excertion, No Wheezing, No Hemoptysis, No Pleuritic Pain, No Sputum, No Other Gastrointestinal: No Nausea, No Vomiting, No Abdominal Pain, No Diarrhea, No Constipation, No Melena, No Hematochezia, No Other Genitourinary: No Dysuria, No Frequency, No Incontinence, No Hematuria, No Retention, No Other Musculoskeletal: No other, No neck pain, No shoulder pain, No arm pain, No back pain, No hand pain, No leg pain, No foot pain Skin: No Rash, No Lesions, No Jaundice, No Bruising, No Other Objective Vitals Vital Signs Date Time Temp Pulse Resp B/P (MAP) Pulse Ox O2 Delivery O2 Flow Rate FiO2 03/03/25 09:00 98.4 100 18 141/73 (95) 96 98.4 03/03/25 08:00 Room Air* 0 21 Intake/Output Intake and Output 03/03/25 07:00 Intake Total 2810 ml Balance 2810 ml Intake Oral 2210 ml IV Total 600 ml # Voids 9 # Bowel Movements 1 Medications Current Medications Medications Dose Ordered Sig/Libby Route Start Time Stop Time Status Last Admin Dose Admin Ceftriaxone Sodium 50 ml @ 100 mls/hr DAILY@09 IV 03/02/25 09:00 03/03/25 09:51 100 MLS/HR Dextrose 50 ml UD PRN IV 03/01/25 07:00 Ondansetron HCl 4 mg Q4HP PRN IV 03/01/25 07:00 Docusate Sodium 100 mg BIDPRN PRN PO 03/01/25 07:00 Enoxaparin Sodium 30 mg DAILY SC 03/01/25 10:00 03/03/25 09:51 30 MG Morphine Sulfate 2 mg Q4HPRN PRN IV 03/01/25 07:00 Nitroglycerin 0.4 mg Q5MINP PRN SL 03/01/25 09:45 Dextrose 250 ml @ 50 mls/hr DAILY IV 03/01/25 14:45 UNV Diagnostic Test (Pha) 1 strip Q4H 03/01/25 21:30 03/03/25 09:24 1 STRIP Sodium Chloride 1,000 ml @ 125 mls/hr Q8H IV 03/02/25 13:45 03/03/25 05:24 125 MLS/HR Laboratory Results Laboratory Tests 03/02/25 04:43 Urinalysis Test 03/01/25 02:24 Urine Color Colorless (Yellow) Urine Clarity Clear (Clear) Urine pH 7.0 (5.0-9.0) Urine Specific [place] 1.006 (1.001-1.035) Urine Protein 1+ (Negative) H Urine Ketones Negative (Negative) Urine Blood 1+ /uL (Negative) H Urine Nitrite Negative (Negative) Urine Bilirubin Negative (Negative) Urine Urobilinogen Normal mg/dL (Negative) Urine Leukocyte Esterase Negative /uL (Negative) Urine RBC <1 /hpf (0 - 4) Urine Microscopic WBC 6 /HPF (0-5) H Urine Squamous Epithelial Cells Few /hpf (<5) Urine Bacteria Few /hpf (None Seen) H Urine Glucose 1+ mg/dL (Normal) H Microbiology Microbiology Date/Time Source Procedure Growth Status 03/01/25 02:24 Voided Urine Urine Culture - Final Complete Labs and/or images reviewed: Labs reviewed by me, Image(s) reviewed by me Assessment/Plan Assessment/Plan Sepsis with hypoglycemia hyponatremia secondary to urinary tract infection NSTEMI, likely type 2 in the setting of electrolyte derangement, cardiology consult by Dr. Kowalski appreciated Rule out structural heart disease echocardiogram result pending Severe hyponatremia Hypoglycemia Anemia Acute kidney injury UTI: Rocephin urine cultures mixed Time Spent 50 minutes Advanced care planning time 20 minutes Flu Test pending COVID test pending Patient is full code Daughter Nicolás [phone] at bedside Plan discussed with: Patient My Orders Orders - BRITTANY MCINTYRE MD Procedure Category Date Status Time Sodium Chloride 0.9% PHA 03/02/25 In Process 13:45 Date of Service: Mar 03, 2025 Billing Provider: BRITTANY MCINTYRE MD Common Visit Codes: [id number] INP/OBS CARE(HIGH) BRITTANY MCINTYRE MD Mar 03, 2025 13:03
[2025-03-03] MEDS ORDERED: DEXTROSE (50%) 50ML SYRG IV PRN ×2 (13:30→14:30)
[2025-03-03] MEDS: InsuLIN REG 1unit/0.01ml Soln (100units/ml) ONE (13:35)
[2025-03-03] MEDS: InsuLIN REG 1unit/0.01ml Soln (100units/ml) SC SCH (14:38)
[2025-03-03] MEDS ORDERED: ACCU-CHEK COMFORT CURVE STRIP VI SCH (16:00)
[2025-03-03] MEDS ORDERED: InsuLIN REG 1unit/0.01ml Soln (100units/ml) SC SCH (16:00)
--- NOTE | 2025-03-03 16:29 | DVHSR ---
APPROVED REPORT EXAM: Two-dimensional and M-mode echocardiogram with Doppler and color Doppler. Blood Pressure: 132/71 mmHg INDICATION Eval for Cardiac Function and EF RISK FACTORS Height: 4' 11", Weight: 180 DIMENSIONS LVDd4.1 (3.8-5.7cm)LA (2D)3.7 (1.9-4.0cm)Aortic Root2.8 (2.0-3.7cm) LVDs2.6 (2.5-4.0cm)LA (MM) (1.9-4.0cm)Aortic Cusp Exc1.2 (1.5-2.0cm) EF (%) 65.0 (55-70%)Rt. Atrium3.1 (1.9-4.0cm)Asc. Aorta3.3 cm IVSd1.1 (0.7-1.1cm)RV (D) (1.8-2.4cm) PWd1.1 (0.7-1.1cm) Mitral Valve MitralMitral Stenosis E wave1.50m/sMV Mean GR.mmHg E/A ratio0.02D MVAcm2 Aortic Valve Aortic ValveAortic Stenosis V10.70m/Michelle Mean GR.8mmHg V22.00m/Michelle Peak GR.16mmHg LVOT Diameter2.0 (1.8-2.4cm)Doppler AVA1.10cm2 2D AVA1.48cm2 AI P 1/2 Exbs190.82ms Pulmonic Valve V20.70m/s Conclusion Technically good study. Sinus rhythm. Aortic root enlargement. Mild concentric LVH. Dilatation of sinuses of Valsalva. Mild aortic sclerosis without stenosis. The tricuspid and pulmonic or structurally normal. Left ventricular systolic performance is preserved at 60% with normal RV function. Mild aortic insufficiency. No pericardial effusion masses or vegetations.
[2025-03-04] VITALS (8 sets, daily range): BP systolic 122–146; BP diastolic 66–75; PULSE 83–98; RESP 17–18; TEMP 97.4–99.5; O2SAT 94–99
--- NOTE | 2025-03-04 12:22 | DVHPN2 ---
Reviewed: Care Plan, H&P, Labs, Medications, Previous Orders, Radiology Changes from previous H/P or p: No Changes Eyes: No Pain, No Vision change, No Conjunctivae inflammation, No Eyelid inflammation, No Other, No Redness ENT: No Ear pain, No Ear discharge, No Nose pain, No Nose discharge, No Nose congestion, No Mouth pain, No Mouth swelling, No Throat pain, No Throat swelling, No Other Cardiovascular: No Chest Pain, No Palpitations, No Orthopnea, No Paroxysmal Noc. Dyspnea, No Edema, No Lt Headedness, No Other Respiratory: No Cough, No Dry, No Shortness of breath, No SOB with excertion, No Wheezing, No Hemoptysis, No Pleuritic Pain, No Sputum, No Other Gastrointestinal: No Nausea, No Vomiting, No Abdominal Pain, No Diarrhea, No Constipation, No Melena, No Hematochezia, No Other Genitourinary: No Dysuria, No Frequency, No Incontinence, No Hematuria, No Retention, No Other Musculoskeletal: No other, No neck pain, No shoulder pain, No arm pain, No back pain, No hand pain, No leg pain, No foot pain Skin: No Rash, No Lesions, No Jaundice, No Bruising, No Other Objective Vitals Vital Signs Date Time Temp Pulse Resp B/P (MAP) Pulse Ox O2 Delivery O2 Flow Rate FiO2 03/04/25 09:00 97.4 94 18 130/68 (88) 99 97.4 03/03/25 20:00 Room Air* 0 21 Intake/Output Intake and Output 03/04/25 07:00 Intake Total 800 ml Balance 800 ml Intake Oral 800 ml # Voids 5 # Bowel Movements 1 Medications Current Medications Medications Dose Ordered Sig/Libby Route Start Time Stop Time Status Last Admin Dose Admin Ceftriaxone Sodium 50 ml @ 100 mls/hr DAILY@09 IV 03/02/25 09:00 03/04/25 09:14 100 MLS/HR Dextrose 50 ml UD PRN IV 03/01/25 07:00 Cancel Ondansetron HCl 4 mg Q4HP PRN IV 03/01/25 07:00 Docusate Sodium 100 mg BIDPRN PRN PO 03/01/25 07:00 Enoxaparin Sodium 30 mg DAILY SC 03/01/25 10:00 03/04/25 10:23 30 MG Morphine Sulfate 2 mg Q4HPRN PRN IV 03/01/25 07:00 Nitroglycerin 0.4 mg Q5MINP PRN SL 03/01/25 09:45 Dextrose 250 ml @ 50 mls/hr DAILY IV 03/01/25 14:45 UNV Sodium Chloride 1,000 ml @ 125 mls/hr Q8H IV 03/02/25 13:45 03/04/25 05:45 125 MLS/HR Diagnostic Test (Pha) 1 strip IQ4HR 03/03/25 13:00 03/04/25 08:18 1 STRIP Insulin Human Regular IQ4HR SC 03/03/25 13:00 03/03/25 14:38 20 UNITS Dextrose 50 ml UD PRN IV 03/03/25 14:30 Laboratory Results Laboratory Tests 03/02/25 04:43 Urinalysis Test 03/01/25 02:24 Urine Color Colorless (Yellow) Urine Clarity Clear (Clear) Urine pH 7.0 (5.0-9.0) Urine Specific [place] 1.006 (1.001-1.035) Urine Protein 1+ (Negative) H Urine Ketones Negative (Negative) Urine Blood 1+ /uL (Negative) H Urine Nitrite Negative (Negative) Urine Bilirubin Negative (Negative) Urine Urobilinogen Normal mg/dL (Negative) Urine Leukocyte Esterase Negative /uL (Negative) Urine RBC <1 /hpf (0 - 4) Urine Microscopic WBC 6 /HPF (0-5) H Urine Squamous Epithelial Cells Few /hpf (<5) Urine Bacteria Few /hpf (None Seen) H Urine Glucose 1+ mg/dL (Normal) H Microbiology Microbiology Date/Time Source Procedure Growth Status 03/01/25 02:24 Voided Urine Urine Culture - Final Complete Labs and/or images reviewed: Labs reviewed by me, Image(s) reviewed by me Assessment/Plan Assessment/Plan Sepsis with hypoglycemia hyponatremia secondary to urinary tract infection urine cultures mixed. , continue with Rocephin NSTEMI, likely type 2 in the setting of electrolyte derangement, cardiology consult by Dr. Kowalski appreciated Rule out structural heart disease echocardiogram result pending Severe hyponatremia Hypoglycemia Anemia Acute kidney injury UTI: Rocephin urine cultures mixed Time Spent 50 minutes Advanced care planning time 20 minutes Flu test negative Polly test negative Patient is full code Daughter Nicolás [phone] at bedside Patient will be discharged home on home health for IV antibiotics for two weeks for complicated UTI Plan discussed with: Patient My Orders Orders - BRITTANY MCINTYRE MD Procedure Category Date Status Time Glucose Blood PHA 03/03/25 In Process (Accu-Chek Comfort 13:00 Insulin R (Human) PHA 03/03/25 In Process (Insulin R) 13:00 Dextrose 50% Syringe PHA 03/03/25 In Process 14:30 Date of Service: Mar 04, 2025 Billing Provider: BRITTANY MCINTYRE MD Common Visit Codes: [id number] INP/OBS CARE(HIGH) BRITTANY MCINTYRE MD Mar 04, 2025 12:21
--- NOTE | 2025-03-04 12:34 | DVHDS2 ---
Discharge Summary Date of Admission Mar 01, 2025 at 09:33 Date of Discharge: Mar 04, 2025 Admitting Diagnosis Generalized weakness Wounds: none Labs/Diagnostic Data: Laboratory Results Test 03/04/25 12:06 03/02/25 13:23 03/02/25 04:43 03/01/25 07:08 POC Glucose 323 mg/dl (70-106) Influenza Type A Antigen Negative (Negative) Influenza Type B Antigen Negative (Negative) SARS-CoV-2 Antigen (Rapid) Negative (NEGATIVE) White Blood Count 10.1 10^3/uL (4.4-10.8) Red Blood Count 3.96 10^6/uL (4.0-5.20) Hemoglobin 9.5 g/dL (12.2-16.2) Hematocrit 28.1 % (36.0-46.0) Mean Corpuscular Volume 71.1 fL (80.0-100.0) Mean Corpuscular Hemoglobin 24.0 pg (28.0-32.0) Mean Corpuscular Hemoglobin Concent 33.8 g/dL (32.0-36.0) Red Cell Distribution Width 14.5 % (11.8-14.3) Platelet Count 538 10^3/uL (140-450) Mean Platelet Volume 7.0 fL (6.9-10.8) Neutrophils (%) (Auto) 78.8 % (37.0-80.0) Lymphocytes (%) (Auto) 9.3 % (10.0-50.0) Monocytes (%) (Auto) 10.4 % (0.0-12.0) Eosinophils (%) (Auto) 1.0 % (0.0-7.0) Basophils (%) (Auto) 0.5 % (0.0-2.0) Neutrophils # (Auto) 7.9 10 ^3/uL (1.6-8.6) Lymphocytes # (Auto) 0.9 10 ^3/uL (0.4-5.4) Monocytes # (Auto) 1.0 10 ^3/uL (0-1.3) Eosinophils # (Auto) 0.1 10 ^3/uL (0-0.8) Basophils # (Auto) 0 10 ^3/uL (0-0.2) Nucleated Red Blood Cells 0.1 % Sodium Level 126 mmol/L (136-145) Potassium Level 4.4 mmol/L (3.5-5.1) Chloride Level 94 mmol/L (98-107) Carbon Dioxide Level 22 mmol/L (20-31) Anion Gap 10 (5-15) Blood Urea Nitrogen 20 mg/dL (9-23) Creatinine 2.34 mg/dL (0.550-1.02) Glomerular Filtration Rate Calc 21 mL/min (>90) BUN/Creatinine Ratio 8.5 (10.0-20.0) Serum Glucose 102 mg/dL (74-106) Hemoglobin A1c 8.2 % A1C (<5.7) Calcium Level 9.0 mg/dL (8.7-10.4) Magnesium Level 1.8 mg/dL (1.6-2.6) Total Bilirubin 0.3 mg/dL (0.2-1.0) Aspartate Amino Transferase (AST) 24 U/L (13-40) Alanine Aminotransferase (ALT) 15 U/L (7-40) Alkaline Phosphatase 93 U/L (46-116) Total Protein 7.6 g/dL (5.7-8.2) Albumin 4.1 g/dL (3.2-4.8) Triglycerides Level 84 mg/dL (< 150) Cholesterol Level 76 mg/dL (< 200) LDL Cholesterol 18 mg/dL (< 100) HDL Cholesterol 41 mg/dL (40-59) Thyroid Stimulating Hormone (TSH) 4.17 uIU/mL (0.55-4.78) Troponin I High Sensitivity 81 ng/L (</=34) Test 03/01/25 02:24 03/01/25 00:34 Urine Color Colorless (Yellow) Urine Clarity Clear (Clear) Urine pH 7.0 (5.0-9.0) Urine Specific [place] 1.006 (1.001-1.035) Urine Protein 1+ (Negative) Urine Ketones Negative (Negative) Urine Blood 1+ /uL (Negative) Urine Nitrite Negative (Negative) Urine Bilirubin Negative (Negative) Urine Urobilinogen Normal mg/dL (Negative) Urine Leukocyte Esterase Negative /uL (Negative) Urine RBC <1 /hpf (0 - 4) Urine Microscopic WBC 6 /HPF (0-5) Urine Squamous Epithelial Cells Few /hpf (<5) Urine Bacteria Few /hpf (None Seen) Urine Glucose 1+ mg/dL (Normal) Lactic Acid Level 1.7 mmol/L (0.4-2.0) Other Laboratory Tests 03/02/25 04:43 Brief Hx & Hospital Course: 79 year-old female with a history of diabetes came in complaining of generalized weakness. The patient was found to be hypoglycemic and hyponatremic on the scene. Patient UTI, started on Rocephin 1 g IV daily which she will continue for two more weeks by home health. Urine cultures were mixed slightly elevated troponin non ST-elevation CT type 2 secondary to electrolyte imbalance. Seen by cardiology Dr. Kowalski. Echocardiogram 60 percent ejection fraction no further cardiac workup flu test negative Polly test negative. The patient is being discharged home on home health for Rocephin IV for two weeks. The plan is agreeable with the patient's daughter at bedside Consults/Reason for consult Cardiology Dr. Kowalski Operations or Procedures Echocardiogram Condition at Discharge: Fair Final Diagnosis/Problems List Sepsis with hypoglycemia hyponatremia secondary to urinary tract infection urine cultures mixed. , continue with Rocephin NSTEMI, likely type 2 in the setting of electrolyte derangement, cardiology consult by Dr. Kowalski appreciated Rule out structural heart disease echocardiogram result pending Severe hyponatremia Hypoglycemia Anemia Acute kidney injury UTI: Rocephin urine cultures mixed Time Spent 50 minutes Advanced care planning time 20 minutes Flu test negative Polly test negative Discharge Disposition: Home with Health Services Discharge Instruct/Medications Diet: Consistent carbohydrate Activity: Light activity Follow Up/Referral: Follow up with your primary Dr in two weeks check Blood sugar 3 times a day Continue all your previous home medications Medications: Transmitted to the pharmacy 39 (Time Taken for discharge summary 39 minutes) Discharge Statement: "Patient was advised to return to the ER or call 911 if any headaches, dizziness, shortness of breath, chest pain, abdominal pain, bleeding, fevers, or worsening of medical condition. Patient was counseled about treatment plan, medications, possible side effects, patientverbalized understanding. All questions were answered to the best of my ability. This discharge took greater then 30 minutes in planning, reviewing documentation, counseling the patient, and discussing with other team members." ASSESSMENT ASSESSMENT Hospital Course Improved Assessment Sepsis with hypoglycemia hyponatremia secondary to urinary tract infection urine cultures mixed. , continue with Rocephin NSTEMI, likely type 2 in the setting of electrolyte derangement, cardiology consult by Dr. Kowalski appreciated Rule out structural heart disease echocardiogram result pending Severe hyponatremia Hypoglycemia Anemia Acute kidney injury UTI: Rocephin urine cultures mixed Time Spent 50 minutes Advanced care planning time 20 minutes Flu test negative Polly test negative Date of Service: Mar 04, 2025 Billing Provider: BRITTANY MCINTYRE MD Common Visit Codes: 22155-[facility]/OBS DISCH DAY >30min BRITTANY MCINTYRE MD Mar 04, 2025 12:34
[2025-03-04] MEDS ORDERED: DEXTROSE (50%) 50ML SYRG IV PRN (13:30)
[2025-03-04] MEDS: ACCU-CHEK COMFORT CURVE STRIP VI SCH (16:00)
[2025-03-04] MEDS ORDERED: InsuLIN REG 1unit/0.01ml Soln (100units/ml) SC SCH (17:00)
[2025-03-04] MEDS: InsuLIN REG 1unit/0.01ml Soln (100units/ml) SC SCH (17:26)
[2025-03-05 01:00] VITALS: BP 137/77; PULSE 91; RESP 18; TEMP 99; O2SAT 96
[2025-03-05 05:00] VITALS: BP 148/81; PULSE 91; RESP 19; TEMP 98.4; O2SAT 96
--- NOTE | 2025-03-05 07:58 | ECG ---
[facility] Test Date: 2025-03-01 Test Time: 17:25:31 Pat Name: STEVE MANNING Department: Room: 0294T A Gender: F Manager Laundry: TARIK : 1945 Requested By: NEISHA GILES Order Number: [id number] Reading MD: Mj Kowalski Measurements Intervals [place] Rate: 100 P: -29 RI: 168 QRS: 20 QRSD: 91 T: 53 QT: 349 QTc: 451 Interpretive Statements Sinus tachycardia Nonspecific T abnormalities, anterior leads Electronically Signed On 03-05-2025 18:10:40 PDT by Mj Kowalski Please click the below link to view image of tracing.
[2025-03-05 08:00] VITALS: PULSE 93; RESP 16; O2SAT 97
[2025-03-05 08:30] VITALS: BP 117/71; PULSE 97; RESP 16; TEMP 98.1; O2SAT 96
--- NOTE | 2025-03-05 11:22 | DVHPN2 ---
Reviewed: Care Plan, H&P, Labs, Medications, Previous Orders, Radiology Changes from previous H/P or p: No Changes Eyes: No Pain, No Vision change, No Conjunctivae inflammation, No Eyelid inflammation, No Other, No Redness ENT: No Ear pain, No Ear discharge, No Nose pain, No Nose discharge, No Nose congestion, No Mouth pain, No Mouth swelling, No Throat pain, No Throat swelling, No Other Cardiovascular: No Chest Pain, No Palpitations, No Orthopnea, No Paroxysmal Noc. Dyspnea, No Edema, No Lt Headedness, No Other Respiratory: No Cough, No Dry, No Shortness of breath, No SOB with excertion, No Wheezing, No Hemoptysis, No Pleuritic Pain, No Sputum, No Other Gastrointestinal: No Nausea, No Vomiting, No Abdominal Pain, No Diarrhea, No Constipation, No Melena, No Hematochezia, No Other Genitourinary: No Dysuria, No Frequency, No Incontinence, No Hematuria, No Retention, No Other Musculoskeletal: No other, No neck pain, No shoulder pain, No arm pain, No back pain, No hand pain, No leg pain, No foot pain Skin: No Rash, No Lesions, No Jaundice, No Bruising, No Other Objective Vitals Vital Signs Date Time Temp Pulse Resp B/P (MAP) Pulse Ox O2 Delivery O2 Flow Rate FiO2 03/05/25 08:30 98.1 97 16 117/71 (86) 96 98.1 03/04/25 20:00 Room Air* 0 21 Intake/Output Intake and Output 03/05/25 07:00 Intake Total 1380 ml Balance 1380 ml Intake Oral 1380 ml # Voids 6 Medications Current Medications Medications Dose Ordered Sig/Libby Route Start Time Stop Time Status Last Admin Dose Admin Ceftriaxone Sodium 50 ml @ 100 mls/hr DAILY@09 IV 03/02/25 09:00 03/05/25 09:06 100 MLS/HR Dextrose 50 ml UD PRN IV 03/01/25 07:00 Cancel Ondansetron HCl 4 mg Q4HP PRN IV 03/01/25 07:00 Docusate Sodium 100 mg BIDPRN PRN PO 03/01/25 07:00 Enoxaparin Sodium 30 mg DAILY SC 03/01/25 10:00 03/05/25 10:43 30 MG Morphine Sulfate 2 mg Q4HPRN PRN IV 03/01/25 07:00 Nitroglycerin 0.4 mg Q5MINP PRN SL 03/01/25 09:45 Dextrose 250 ml @ 50 mls/hr DAILY IV 03/01/25 14:45 UNV Sodium Chloride 1,000 ml @ 125 mls/hr Q8H IV 03/02/25 13:45 03/04/25 23:15 125 MLS/HR Diagnostic Test (Pha) 1 strip IQ4HR 03/04/25 16:00 03/05/25 08:02 1 STRIP Insulin Human Regular IQ4HR SC 03/04/25 16:00 03/04/25 17:26 10 UNITS Dextrose 50 ml UD PRN IV 03/04/25 13:30 Laboratory Results Laboratory Tests 03/02/25 04:43 Urinalysis Test 03/01/25 02:24 Urine Color Colorless (Yellow) Urine Clarity Clear (Clear) Urine pH 7.0 (5.0-9.0) Urine Specific [place] 1.006 (1.001-1.035) Urine Protein 1+ (Negative) H Urine Ketones Negative (Negative) Urine Blood 1+ /uL (Negative) H Urine Nitrite Negative (Negative) Urine Bilirubin Negative (Negative) Urine Urobilinogen Normal mg/dL (Negative) Urine Leukocyte Esterase Negative /uL (Negative) Urine RBC <1 /hpf (0 - 4) Urine Microscopic WBC 6 /HPF (0-5) H Urine Squamous Epithelial Cells Few /hpf (<5) Urine Bacteria Few /hpf (None Seen) H Urine Glucose 1+ mg/dL (Normal) H Microbiology Microbiology Date/Time Source Procedure Growth Status 03/01/25 02:24 Voided Urine Urine Culture - Final Complete Labs and/or images reviewed: Labs reviewed by me, Image(s) reviewed by me Assessment/Plan Assessment/Plan Sepsis with hypoglycemia hyponatremia secondary to urinary tract infection urine cultures mixed. , continue with Rocephin NSTEMI, likely type 2 in the setting of electrolyte derangement, cardiology consult by Dr. 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 Plan discussed with: Patient My Orders Orders - BRITTANY MCINTYRE MD Procedure Category Date Status Time Discharge DISCHARGE 03/04/25 Transmitted 12:22 * Accuracy Expert CONS 03/04/25 Transmitted Consult Glucose Blood PHA 03/04/25 In Process (Accu-Chek Comfort 16:00 Insulin R (Human) PHA 03/04/25 In Process (Insulin R) 16:00 Dextrose 50% Syringe PHA 03/04/25 In Process 13:30 Insert Midline ORDERS 03/04/25 Transmitted 14:48 * Accuracy Expert CONS 03/04/25 Transmitted Consult Date of Service: Mar 05, 2025 Billing Provider: BRITTANY MCINTYRE MD Common Visit Codes: [id number] INP/OBS CARE(HIGH) BRITTANY MCINTYRE MD Mar 05, 2025 11:22
[2025-03-05 12:06] VITALS: BP 135/70; PULSE 88; RESP 16; TEMP 98; O2SAT 97
== END 2025-03-05 14:40 | disposition home or self-care (01) | DRG 871 ==
LOC: ER 23:56 → EDBD 23:56 → OVERFLOW 03-01 09:33 → TELE-WESTW 03-01 11:16
PROVIDERS: ADMIT Family Medicine; ATTEND Family Medicine
DX: A41.9 Sepsis, unspecified organism (principal); G93.41 Metabolic encephalopathy; I21.A1 Myocardial infarction type 2; N17.0 Acute kidney failure with tubular necrosis; N30.00 Acute cystitis without hematuria; E87.1 Hypo-osmolality and hyponatremia; Z20.822 Contact with and (suspected) exposure to COVID-19; E11.649 Type 2 diabetes mellitus with hypoglycemia without coma; D64.9 Anemia, unspecified; I10 Essential (primary) hypertension; E78.5 Hyperlipidemia, unspecified; Z79.4 Long term (current) use of insulin; Z79.899 Other long term (current) drug therapy
CPT/HCPCS: 36415; 71045; 80053; 80061; 81001; 82962; 83036; 83605; 83735; 84443; 84484; 85025; 87086; 87426; 87804; 93005; 93306; 96361; 96374; 99291; G0378; J1815